=== PATIENT | female | born 1960 | race Two or more races ===

== ENCOUNTER 2019-06-20 12:03 | Emergency (ER) | payer MEDICARE, MEDICAID ==
[~2019-06-20] VITALS: Ht 167.6 cm; Wt 81.6 kg
--- NOTE | 2019-06-20 12:05 | NUR ---
PT BIB FRIEND C/O LIP AND FACIAL LAC S/P TRIP AND FALL HOLDING A FLOWER VASE, PT IS AAOX4, NOT IN RESPIRATORY DISTRESS, HOOKED TO MONITOR, KEPT RESTED AND COMFORTABLE, WILL CONTINUE TO MONITOR.
--- NOTE | 2019-06-20 12:10 | NUR ---
WOUND CLEANING DONE BY ASSISTANT PROFESSOR OF NURSING.
[2019-06-20] MEDS ORDERED: LIDOCAINE 1% INJ 50 ML MDV IJ ONE (12:11)
[2019-06-20] MEDS ORDERED: LET SOLN TOPICAL 8 ML UDC TP ONE (12:12)
--- NOTE | 2019-06-20 12:16 | NUR ---
ISAIAH ARAUZ AT BEDSIDE FOR EVAL.
[2019-06-20] MEDS ORDERED: LIDOCAINE 1%-EPI 1:100,000 20 ML VIAL ONE (12:17)
[2019-06-20] MEDS ORDERED: HYDROCODONE/APAP 5/325MG 1 EACH TABLET ONE (12:18)
[2019-06-20] MEDS ORDERED: TDAP [DIPH/PERTUSSIS/TET] 0.5 ML VIAL IM ONE ×2 (12:18→12:30)
[2019-06-20] MEDS ORDERED: ACETAMINOPHEN ES 500 MG TABLET ONE (12:21)
[2019-06-20] MEDS ORDERED: LORAZEPAM 1 MG TABLET ONE (12:21)
[2019-06-20] MEDS ORDERED: HYDROCODONE/APAP 5/325MG 1 EACH TABLET PO ONE (12:30)
[2019-06-20] MEDS ORDERED: ACETAMINOPHEN 325 MG TABLET PO ONE (12:30)
[2019-06-20] MEDS ORDERED: LORAZEPAM 1 MG TABLET PO ONE (12:30)
[2019-06-20] MEDS ORDERED: GELATIN SPONGE,ABSORBABLE 1 SPONGE SPONGE TP ONE (12:44)
--- NOTE | 2019-06-20 12:54 | NUR ---
PT IS BACK FROM THE CT SCAN.
--- NOTE | 2019-06-20 13:05 | NUR ---
MACHINE CLERICAL VERIFIER AT BEDSIDE FOR XRAY.
[2019-06-20] MEDS ORDERED: TRAMADOL HCL 50 MG TABLET ONE (13:12)
[2019-06-20] MEDS ORDERED: TRAMADOL HCL 50 MG TABLET PO ONE (13:30)
--- NOTE | 2019-06-20 13:42 | NUR ---
Patient discharged to home in stable condition. Written and verbal after care instructions given. Patient verbalizes understanding of instruction.
[2019-06-20 13:59] VITALS: BP 141/84
== END 2019-06-20 13:59 | disposition home or self-care (01) ==
LOC: ER 12:06
DX: S01.111A Laceration without foreign body of right eyelid and periocular area, initial encounter (principal); S01.511A Laceration without foreign body of lip, initial encounter; S61.432A Puncture wound without foreign body of left hand, initial encounter; R51 Headache; E78.00 Pure hypercholesterolemia, unspecified; W01.110A Fall on same level from slipping, tripping and stumbling with subsequent striking against sharp glass, initial encounter; Y93.89 Activity, other specified; Y92.89 Other specified places as the place of occurrence of the external cause; Y99.8 Other external cause status
CPT/HCPCS: 70450; 70486; 73130; 90471; 90715; 99284; A4217; J3490